=== PATIENT | female | born 1960 | race Caucasian/White ===

== ENCOUNTER → 2024-09-19 13:07 | Outpatient (REF) | payer OTHER, SELFPAY | LOC: PAVMRI 13:07 | PROVIDERS: ATTENDING PHYSICIAN Nurse Practitioner Adult Health; FAMILY PHYSICIAN Family Medicine | DX: H92.01 Otalgia, right ear (principal); R68.84 Jaw pain; R51.9 Headache, unspecified | CPT/HCPCS: 70544; 70553; A9575 ==

== ENCOUNTER → 2024-09-20 13:05 | Outpatient (REF) | payer OTHER, SELFPAY | LOC: PAVMRI 13:05 | PROVIDERS: ATTENDING PHYSICIAN Family Medicine; FAMILY PHYSICIAN Nurse Practitioner Adult Health | DX: H92.01 Otalgia, right ear (principal); R68.84 Jaw pain; R51.9 Headache, unspecified | CPT/HCPCS: 70543; A9575 ==

== ENCOUNTER → 2024-11-07 12:48 | Outpatient (REF) | payer OTHER, SELFPAY | LOC: HWRAD 12:48 | PROVIDERS: ATTENDING PHYSICIAN Obstetrics & Gynecology Gynecology; FAMILY PHYSICIAN Family Medicine | DX: D21.9 Benign neoplasm of connective and other soft tissue, unspecified (principal) | CPT/HCPCS: 76830; 76856 ==

== ENCOUNTER → 2025-06-06 15:58 | Outpatient (REF) | payer OTHER, SELFPAY | LOC: RAD 15:58 | PROVIDERS: ATTENDING PHYSICIAN Family Medicine | DX: M25.561 Pain in right knee (principal); M25.562 Pain in left knee | CPT/HCPCS: 73564; 73565 ==

== ENCOUNTER → 2025-10-15 10:36 | Outpatient (REF) | payer OTHER, SELFPAY | LOC: RAD 10:36 | PROVIDERS: ATTENDING PHYSICIAN Internal Medicine; FAMILY PHYSICIAN Family Medicine | DX: K21.9 Gastro-esophageal reflux disease without esophagitis (principal) | CPT/HCPCS: 74246 ==